=== PATIENT | female | born 1990 | race Hispanic/Latino ===

== ENCOUNTER 2019-02-03 06:47 | Emergency (ER) | payer OTHER ==
[2019-02-03] MEDS ORDERED: ACETAMINOPHEN 325 MG TAB ONE (07:15)
[2019-02-03] MEDS ORDERED: TETANUS/DIPHTHERIA TOXOID [ADULT] 0.5 ML VIAL IM ONE (07:16)
[2019-02-03] MEDS ORDERED: LIDOCAINE HCL 1% 20 ML VIAL ONE (07:43)
== END 2019-02-03 09:10 | disposition home or self-care (01) ==
LOC: EDH 06:47
DX: S01.81XA Laceration without foreign body of other part of head, initial encounter (principal); R55 Syncope and collapse; Z88.6 Allergy status to analgesic agent; W18.39XA Other fall on same level, initial encounter; Y93.89 Activity, other specified; Y92.89 Other specified places as the place of occurrence of the external cause; Y99.8 Other external cause status
CPT/HCPCS: 12053; 81025; 90471; 90714

== ENCOUNTER 2024-06-01 14:43 | Emergency (ER) | payer BC ==
[~2024-06-01] VITALS: Ht 162.6 cm; Wt 66.2 kg
[2024-06-01 14:45] VITALS: BP 134/97; PULSE 88; RESP 18; TEMP 98.9; O2SAT 99
[2024-06-01] MEDS: 0.9%NACL 1000ML 1,000 ML IV ONE (16:11)
[2024-06-01 16:19] LABS: BASOPHILS # (AUTO) 0.07 K/uL (0.00-0.20); BASOPHILS % (AUTO) 0.7 % (0.0-5.0); HEMATOCRIT 40.4 % (36-48); IMMATURE GRANULOCYTE ABSOLUTE 0.03 K/uL (0-1); LYMPHOCYTES # (AUTO) 2.2 K/uL (1.0-4.8); LYMPHOCYTES % (AUTO) 22.6 % (21.0-51.0); MEAN CORPUSCULAR HEMOGLOBIN 30.9 pg (27.0-33.0); MEAN CORPUSCULAR HGB CONC 34.9 g/dL (32.0-36.0); MEAN CORPUSCULAR VOLUME 88.4 fL (79-99); MONOCYTES # (AUTO) 0.5 K/uL (0.1-1.0); MONOCYTES % (AUTO) 4.9 % (3.0-13.0); NEUTROPHILS # (AUTO) 6.8 K/uL (1.8-7.7); NEUTROPHILS % (AUTO) 70.5 % (40.0-77.0); PLATELET COUNT (AUTO) 276 K/uL (130-400); RED BLOOD CELL COUNT(AUTO) 4.57 MIL/uL (4.00-5.50); RED CELL DISTRIBUTION WIDTH 11.8 % (11.0-15.5); WHITE BLOOD COUNT (AUTO) 9.7 K/uL (4.8-10.8)
[2024-06-01 16:26] LABS: CREATININE 0.7 mg/dL (0.5-1.0); POTASSIUM 4.1 mmol/L (3.5-5.1)
[2024-06-01 16:32] LABS: ALBUMIN 3.7 g/dL (3.5-5.0); BILIRUBIN,TOTAL 0.4 mg/dL (0.2-1.0); TOTAL PROTEIN, SERUM 7.4 g/dL (6.0-8.3)
[2024-06-01] MEDS ORDERED: CYCL10TA16 PO (17:14)
== END 2024-06-01 19:20 | disposition home or self-care (01) ==
LOC: EDH 14:43
DX: R25.2 Cramp and spasm (principal); E78.00 Pure hypercholesterolemia, unspecified; I10 Essential (primary) hypertension; Z88.6 Allergy status to analgesic agent
CPT/HCPCS: 99284; 96360; 76856; 80053; 85025; 36415; J7030

== ENCOUNTER 2025-04-24 18:51 | Emergency (ER) | payer BC ==
[~2025-04-24] VITALS: Ht 162.6 cm; Wt 71.7 kg
[~2025-04-24 18:51] MED LIST: CYCL10TA16 PO
--- NOTE | 2025-04-24 19:17 | EKG ---
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
[2025-04-24 19:20] LABS: IMMATURE GRANULOCYTE ABSOLUTE 0.04 K/uL (0-1); NUCLEATED RED BLOOD CELLS 0.0 % (0.0-0.19); PLATELET COUNT (AUTO) 266 K/uL (130-400); RED BLOOD CELL COUNT(AUTO) 4.50 MIL/uL (4.00-5.50); RED CELL DISTRIBUTION WIDTH 12.0 % (11.0-15.5); WHITE BLOOD COUNT (AUTO) 8.2 K/uL (4.8-10.8)
[2025-04-24 19:31] LABS: CREATININE 0.5 mg/dL (0.5-1.0); GLOMERULAR FILTR. RATE CALC 124.0 mL/min (>90); GLUCOSE,RANDOM 94.0 mg/dL (70-105); SODIUM SERUM 138.0 mmol/L (136-145); UREA NITROGEN, BLOOD 7.0 mg/dL (7-18)
--- NOTE | 2025-04-24 20:32 | HMCIMG ---
EXAM: CR Chest, 1 View. CLINICAL HISTORY: sob on exertion COMPARISON: None provided. FINDINGS: LUNGS: There is no mass, infiltrate, or acute pulmonary abnormality. PLEURAL SPACES: No pleural effusion or pneumothorax. MEDIASTINUM: Cardiac size and mediastinal contours within normal limits. BONES: No acute osseous abnormality. IMPRESSION: No acute cardiopulmonary pathology is evident. /[place]
--- NOTE | 2025-04-24 20:59 | ERN ---
General Chief Complaint: Upper Extremity Pain/Injury Stated Complaint: X1 WEEK WITH INTERMITTENT RIGHT ARM PAIN Time Seen by MD: 18:53 Time Seen by Midlevel: 18:53 Source: patient History of Present Illness Initial Comments The patient is a 35-year-old female with a past medical history of anxiety, hyperlipidemia, and hypertension presenting to the emergency department for evaluation of intermittent pain to her right upper arm that has been ongoing for one week. She also reports an increase in shortness of breath that has worse with exertion. She reports a recent balloon sinuplasty approximately two weeks ago. She states her symptoms started after the surgery. Allergies: Coded Allergies: ibuprofen (Unverified Allergy, Unknown, 02/03/19) Home Meds Active Scripts Cyclobenzaprine HCl (Flexeril) 10 Mg Tab, 10 MG PO TID for muscle sstiffness, #14 TAB 0 Refills Prov:MAGALI US Saad INGRAM 06/01/24 Past Medical History Past Medical History: Anxiety, High Cholesterol, Hypertension Past Surgical History: Surgical History Other: RHINOPLASY Female( History) History: Not Applicable : 3 Para: 2 Aborts: 1 ROS Dictation CONSTITUTIONAL: Negative except for HPI HEAD/FACE: Negative except for HPI EENT: Negative except for HPI RESPIRATORY: Negative except for HPI GASTROINTESTINAL/ABDOMINAL: Negative except for HPI GENITOURINARY: Negative except for HPI MUSCULOSKELETAL: Negative except for HPI INTEGUMENTARY: Negative except for HPI NEUROLOGICAL/PSYCH: Negative except for HPI HEMATOLOGIC/LYMPHATIC: Negative except for HPI All Systems Negative, Except as noted above. 13 point review of systems assessed and all negative except for above. Physical Exam Physical Exam Dictation Vital Signs reviewed General Appearance: Alert, oriented x 3, no acute distress, well developed, nourished. Head and Face: non-traumatic. Eyes: PERRL, pink conjunctivas, eyelid no trauma, anterior chamber with arcus senilis. Ears: Pinnas intact and no signs of trauma or erythema ear canals clear and no discharge TM no erythema Nose: No discharge, no bleeding. Oropharynx: Mouth normal, tongue pink, pharynx clear,no erythema, tonsils no exudates, no abscesses noted, mucous membrane moist Neck: Supple, non-tender, no thyromegaly, no masses, no JVD, no bruits Breast:Deferred Chest:No tenderness, no crepitus, no paradoxical movement, no retractions Lungs:Clear, well-ventilated, symmetric, no rales, no wheezing, no rhonchi, no stridor, good breath sounds bilaterally Heart: Regular rate, regular rhythm, no murmur, no gallops Vascular: no peripheral edema, Abdomen: Soft, positive bowel sounds, nondistended, no guarding, nontender, no rebound, no masses no hepatomegaly, no splenomegaly, no Reddy's sign, no hernias. Rectal: Deferred Genital: Deferred Neurological: Normal speech, motor function intact, sensory function intact Musculoskeletal: Neck nontender, full range of motion, back nontender, full range of motion, Extremities: nontender, full range of motion Skin: Color pink, dry, no turgor, no rash, no lacerations, no abrasions, no contusions. Lymphatic: Deferred Results Laboratory and Microbiology Lab and Micro Result Laboratory Tests Test 04/24/25 19:11 White Blood Count 8.2 K/uL (4.8-10.8) Red Blood Count 4.50 MIL/uL (4.00-5.50) Hemoglobin 13.8 g/dL (12.0-16.0) Hematocrit 39.0 % (36-48) Mean Corpuscular Volume 86.7 fL (79-99) Mean Corpuscular Hemoglobin 30.7 pg (27.0-33.0) Mean Corpuscular Hemoglobin Concent 35.4 g/dL (32.0-36.0) Red Cell Distribution Width 12.0 % (11.0-15.5) Platelet Count 266 K/uL (130-400) Mean Platelet Volume 9.6 fL (7.5-10.5) Immature Granulocyte % (Auto) 0.5 % (0-1) Neutrophils (%) (Auto) 53.3 % (40.0-77.0) Lymphocytes (%) (Auto) 34.1 % (21.0-51.0) Monocytes (%) (Auto) 7.8 % (3.0-13.0) Eosinophils (%) (Auto) 3.3 % (0.0-8.0) Basophils (%) (Auto) 1.0 % (0.0-5.0) Neutrophils # (Auto) 4.4 K/uL (1.8-7.7) Lymphocytes # (Auto) 2.8 K/uL (1.0-4.8) Monocytes # (Auto) 0.6 K/uL (0.1-1.0) Eosinophils # (Auto) 0.27 K/uL (0.00-0.70) Basophils # (Auto) 0.08 K/uL (0.00-0.20) Absolute Immature Granulocyte (auto 0.04 K/uL (0-1) Nucleated Red Blood Cells 0.0 % (0.0-0.19) D-Dimer Quantitative (PE/DVT) 148 ng/mL (0-500) Sodium Level 138 mmol/L (136-145) Potassium Level 3.7 mmol/L (3.5-5.1) Chloride Level 104 mmol/L (101-111) Carbon Dioxide Level 29 mmol/L (21-32) Blood Urea Nitrogen 7 mg/dL (7-18) Creatinine 0.5 mg/dL (0.5-1.0) Glomerular Filtration Rate Calc 124 mL/min (>90) Random Glucose 94 mg/dL (70-105) Total Calcium 9.1 mg/dL (8.5-10.1) Troponin I High Sensitivity < 4 ng/L (4-50) L Serum Test, Qualitative NEGATIVE (NEGATIVE) Labs Reviewed?: Yes MDM MDM: Differential diagnosis: Anxiety, acute coronary syndrome, pulmonary embolism There are no social concerns with this patient. Prescription drug management Prescriptions will include: None Medical management and examination interpretation discussions were had by me with other qualified healthcare professionals as indicated for the patient's care. ED Course Orders Procedure Category Date Status Time Cbc With Differential LAB 04/24/25 Complete 19:01 Basic Metabolic Panel LAB 04/24/25 Complete 19:01 Chest 1vw RAD 04/24/25 Resulted 19:01 Testing, LAB 04/24/25 Complete Serum Hcg 19:01 Troponin I High LAB 04/24/25 Complete Sensitivity 19:01 12 Lead Ekg Tracing- EKG 04/24/25 Complete Technical 19:01 D-Dimer LAB 04/24/25 Complete 19:01 Vital Signs Date Time Temp Pulse Resp B/P (MAP) Pulse Ox O2 Delivery O2 Flow Rate FiO2 04/24/25 18:57 98.4 84 18 155/88 95 Room Air* 0 21 04/24/25 18:52 98.4 84 18 155/98 95 Room Air 0 DX & DISP Disposition: Discharge Departure Impression: Primary Impression: Shortness of breath on exertion Condition: Stable Additional Instructions: Your blood work today is unremarkable. There are no signs of infection. Your CBC has a normal white blood cell count. You are not anemic. Your chemistries reveal normal kidney function. Your electrolytes are normal. Your cardiac enzymes are negative. Your EKG is normal. Your chest x-ray does not show any cardiopulmonary abnormalities. Your D-dimer was negative which rules out a blood clot in your lung. You will need to follow up with your primary care doctor in 2-3 days for further evaluation. Referrals: ANGY ALLEN PA-C (PCP) I have reviewed the case, and I agree with, Diagnosis and Plan I performed the substantive portion of the visit. I have reviewed and personally made and approve the management plan that is documented in the note by myself or the NATALIE. I acknowledge for responsibility for the patient's management plan. PERLA PEACOCK Apr 24, 2025 20:59
[2025-04-24 21:06] VITALS: BP 135/74; PULSE 80; RESP 18; TEMP 98.4; O2SAT 95
== END 2025-04-24 21:10 | disposition home or self-care (01) ==
LOC: EDH 18:51
DX: R06.02 Shortness of breath (principal); E78.00 Pure hypercholesterolemia, unspecified; I10 Essential (primary) hypertension; F41.9 Anxiety disorder, unspecified; Z79.899 Other long term (current) drug therapy; Z88.6 Allergy status to analgesic agent; Z98.890 Other specified postprocedural states
CPT/HCPCS: 36415; 71045; 80048; 84484; 84703; 85025; 85378; 93005; 99284

== ENCOUNTER 2025-07-09 14:23 | Emergency (ER) | payer BC ==
[~2025-07-09] VITALS: Ht 160 cm; Wt 70.8 kg
--- NOTE | 2025-07-09 14:37 | EKG ---
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
--- NOTE | 2025-07-09 15:38 | ERN ---
ED Note History of Present Illness Stated Complaint: CHEST PRESSURE Chief Complaint: Chest Pain Time Seen by MD: 14:26 Time Seen by Midlevel: 14:30 Dictation: 35-year-old female with no significant medical history coming in with complaints of chest pressure radiating to the shoulder and bag for one week. States the chest pressure is intermittent and it is worse when she moves. Denies having any shortness a breath, fevers, cough, congestion, nausea or vomiting. LMP is 07/08/2025. Allergies: Coded Allergies: ibuprofen (Unverified Allergy, Unknown, 02/03/19) Home Meds Active Scripts Cyclobenzaprine HCl (Flexeril) 10 Mg Tab, 10 MG PO TID for muscle sstiffness, #14 TAB 0 Refills Prov:MAGALI US Saad BATES 06/01/24 Past Medical History Past Medical History: Other Additional Past Medical Hx: THYROID ISSUES Surgical History: None Surgical History Other: RHINOPLASY History: Not Applicable LMP: Jul 09, 2025 : 3 Para: 2 Aborts: 1 Review of System Dictation Constitutional: Negative for fever,chills, and weight loss Eyes: Negative for injury, pain,redness, and discharge ENT: Negative for injury,pain or swelling Cardiovascular: Positive for chest pain, male palpitations, and edema Respiratory: Negative for shortness of breath, cough, and wheezing, Abdomen/GI: Negative for abdominal pain, nausea, vomiting, diarrhea, and constipation Back: Negative for injury and pain : Negative for injury, bleeding and discharge MS/Extremity: Negative for injury and deformity Skin: Negative for rash, and discoloration Neuro: Negative for headache, weakness, numbness, tingling, and seizure Psych: Negative for suicide ideation, homicidal ideation, and hallucinations Review of Systems: was completed Initial Vital Sign VS Vital Signs Date Time Temp Pulse Resp B/P (MAP) Pulse Ox O2 Delivery O2 Flow Rate FiO2 07/09/25 14:25 98.2 69 16 139/90 97 Room Air Physical Exam Dictation General: awake, alert, NAD Head/Face: Normocephalic, atraumatic Eyes: PERRL, EOMI, vision at baseline ENT: oral cavity clear, TMs clear, no signs of infection Neck: Trachea midline, supple, no nuchal rigidity Cardiovascular: RRR, normal S1/S2, No MRGs, no JVD his pain is reproducible on palpation to the right chest wall Respiratory: CTAB, no respiratory distress, No rales or wheezes Abdomen: Soft, non-tender, non-distended, normal bowel sounds, no guarding or rebound. Skin: Warm, dry, normal turgor, no rash MS/Extremity: Pulses equal, no cyanosis, neurovascular intact, FROM Neuro: COAx4, GCS 15, strength 5/5, CN 2-12 intact, normal cerebellar exam, normal gait, Psych: Normal behavior, mood, and affect normal Results (Laboratory/Radiology) Laboratory/Radiology Laboratory Tests Test 07/09/25 15:38 White Blood Count 8.1 K/uL (4.8-10.8) Red Blood Count 4.53 MIL/uL (4.00-5.50) Hemoglobin 13.9 g/dL (12.0-16.0) Hematocrit 40.1 % (36-48) Mean Corpuscular Volume 88.5 fL (79-99) Mean Corpuscular Hemoglobin 30.7 pg (27.0-33.0) Mean Corpuscular Hemoglobin Concent 34.7 g/dL (32.0-36.0) Red Cell Distribution Width 11.8 % (11.0-15.5) Platelet Count 295 K/uL (130-400) Mean Platelet Volume 9.9 fL (7.5-10.5) Immature Granulocyte % (Auto) 0.2 % (0-1) Neutrophils (%) (Auto) 62.7 % (40.0-77.0) Lymphocytes (%) (Auto) 27.0 % (21.0-51.0) Monocytes (%) (Auto) 6.9 % (3.0-13.0) Eosinophils (%) (Auto) 2.3 % (0.0-8.0) Basophils (%) (Auto) 0.9 % (0.0-5.0) Neutrophils # (Auto) 5.1 K/uL (1.8-7.7) Lymphocytes # (Auto) 2.2 K/uL (1.0-4.8) Monocytes # (Auto) 0.6 K/uL (0.1-1.0) Eosinophils # (Auto) 0.19 K/uL (0.00-0.70) Basophils # (Auto) 0.07 K/uL (0.00-0.20) Absolute Immature Granulocyte (auto 0.02 K/uL (0-1) Nucleated Red Blood Cells 0.0 % (0.0-0.19) Sodium Level 139 mmol/L (136-145) Potassium Level 3.9 mmol/L (3.5-5.1) Chloride Level 103 mmol/L (101-111) Carbon Dioxide Level 26 mmol/L (21-32) Blood Urea Nitrogen 11 mg/dL (7-18) Creatinine 0.6 mg/dL (0.5-1.0) Glomerular Filtration Rate Calc 118 mL/min (>90) Random Glucose 89 mg/dL (70-105) Total Calcium 8.7 mg/dL (8.5-10.1) Troponin I High Sensitivity 4 ng/L (4-50) Labs Reviewed?: Yes EKG Comment: EKGs done at 1:52 p.m.. Sinus rhythm at a rate of 70. No STEMI interpreted by ER MD X-RAY Comment: [address] [address] IMAGING REPORT Signed PATIENT: YAMILE DIXON MR#: [id number] : 1990 SEX: F AGE: 35 LOCATION: [facility] ORDER 34 STATUS: REG ER REPORT#: [id number] SERVICE 31 REASON: cp ORDERING PHYSICIAN: ILEANA SESAY PROCEDURE: CXR1VW - CHEST 1VW EXAM: CR Chest, 1 View. CLINICAL HISTORY: cp COMPARISON: April 24, 2025 FINDINGS: LUNGS: The lungs show no infiltrate or other acute finding. PLEURAL SPACES: No pleural effusion or pneumothorax. MEDIASTINUM: The cardiomediastinal silhouette is within normal limits. BONES: No acute osseous abnormality. IMPRESSION: No acute cardiopulmonary pathology is evident. /[place] DICTATED BY: KELLY WEAVER MD DATE: 07/09/251654 ELECTRONICALLY SIGNED BY: KELLY WEAVER MD DATE: 10/15/25 1655 ED Course ED Course Orders Procedure Category Date Status Time Cbc With Differential LAB 07/09/25 Complete 14:32 Basic Metabolic Panel LAB 07/09/25 Complete 14:32 Troponin I High LAB 07/09/25 Complete Sensitivity 14:32 12 Lead Ekg Tracing- EKG 07/09/25 Resulted Technical 14:32 Chest 1vw RAD 07/09/25 Resulted 14:32 Methocarbamol PHA 07/09/25 Complete (Methocarbamol) 14:32 Acetaminophen 325 Tab PHA 07/09/25 Complete (Tylenol 325mg Tab 14:32 Current Medications Medications (Trade) Dose Ordered Sig/Dom Route PRN Reason Start Time Stop Time Status Last Admin Dose Admin Acetaminophen (TYLenol 325MG TAB) 650 mg ONCE STAT PO 07/09/25 14:32 07/09/25 14:37 DC Methocarbamol (methoCARBamol) 1,000 mg ONCE STAT PO 07/09/25 14:32 07/09/25 14:37 DC Vital Signs Date Time Temp Pulse Resp B/P (MAP) Pulse Ox O2 Delivery O2 Flow Rate FiO2 07/09/25 14: 98.2 69 16 139/90 97 Room Air HEART Score Response (Comments) Value History: Low suspicion (0) 0 EKG: Normal 0 Age: < 45yrs (0) 0 Risk Factors: No known risk factors (0) 0 Initial Troponin: Normal limit (0) 0 Total 0 Medical Decision Making MDM MDM: 35-year-old female with no significant medical history coming in with complaints of chest pressure radiating to the shoulder and bag for one week. States the chest pressure is intermittent and it is worse when she moves. Denies having any shortness a breath, fevers, cough, congestion, nausea or vomiting. LMP is 07/08/2025. Blood work is unremarkable. Chest x-ray is normal. Discussed findings with the patient , educated patient that she needs to follow up outpatient with PCP. In the meantime she can take Tylenol or Motrin [id number] for pain control. Educated to return to the hospital if needed. Differential diagnosis: ACS, muscle spasm, costochondritis, musculoskeletal Rationale: Tests considered and ordered secondary to shared decision making include: Previous outside records reviewed: Old ER visits. Risk of complication and/or morbidity or mortality of patient management: None Medications-Per medication reconciliation Need for hospitalization: Patient does not meet criteria for hospitalization. Need for emergency major/minor surgery: No There are no social concerns with this patient. Prescription drug management Prescriptions will include symptomatic care Patient's prior external medical records from other ER visits were reviewed by me as indicated. Prior testing and results from previous visits were reviewed. Prior tests were taken into account with medical decision making and resource utilization, independent historian/historians were used to obtain complete medical history. I independently interpreted the test that were performed, results were reviewed by me and considered findings on radiology if ordered. Medical management and examination interpretation discussions were had by me with other qualified healthcare professionals as indicated for the patient's care. DX & DISP Disposition: Discharge Departure Impression: Primary Impression: Chest wall pain Condition: Stable Additional Instructions: All your blood work is normal. Your EKGs was normal. And your chest x-ray is normal. More than likely you are having left chest wall pain related to more musculoskeletal etiology versus cardiac. Either way follow up with your PCP and or with your retail pricing coordinator in 1-2 days. Return to the hospital as needed. Referrals: ANGY ALLEN (PCP) Time of Disposition: 17:13 I have reviewed the case, and I agree with, Diagnosis and Plan ILEANA SESAY Jul 09, 2025 15:38
[2025-07-09 15:46] LABS: IMMATURE GRANULOCYTE ABSOLUTE 0.02 K/uL (0-1); NUCLEATED RED BLOOD CELLS 0.0 % (0.0-0.19); PLATELET COUNT (AUTO) 295 K/uL (130-400); RED BLOOD CELL COUNT(AUTO) 4.53 MIL/uL (4.00-5.50); RED CELL DISTRIBUTION WIDTH 11.8 % (11.0-15.5); WHITE BLOOD COUNT (AUTO) 8.1 K/uL (4.8-10.8)
--- NOTE | 2025-07-09 15:55 | HMCIMG ---
EXAM: CR Chest, 1 View. CLINICAL HISTORY: cp COMPARISON: April 24, 2025 FINDINGS: LUNGS: The lungs show no infiltrate or other acute finding. PLEURAL SPACES: No pleural effusion or pneumothorax. MEDIASTINUM: The cardiomediastinal silhouette is within normal limits. BONES: No acute osseous abnormality. IMPRESSION: No acute cardiopulmonary pathology is evident. /[place]
[2025-07-09 16:13] LABS: CREATININE 0.6 mg/dL (0.5-1.0); GLOMERULAR FILTR. RATE CALC 118.0 mL/min (>90); GLUCOSE,RANDOM 89.0 mg/dL (70-105); SODIUM SERUM 139.0 mmol/L (136-145); UREA NITROGEN, BLOOD 11.0 mg/dL (7-18)
[2025-07-09 17:35] VITALS: BP 135/88; PULSE 68; RESP 16; TEMP 98.3; O2SAT 99
== END 2025-07-09 18:07 | disposition home or self-care (01) ==
LOC: EDH 14:23
DX: R07.89 Other chest pain (principal); Z88.6 Allergy status to analgesic agent; Z79.899 Other long term (current) drug therapy
CPT/HCPCS: 36415; 71045; 80048; 84484; 85025; 93005; 99284